=== PATIENT | male | born 1980 | race Caucasian/White ===

== ENCOUNTER 2017-05-23 16:43 | Emergency (ER) | payer MEDICAID ==
[~2017-05-23] VITALS: Ht 177.8 cm; Wt 95.3 kg
[2017-05-23] MEDS ORDERED: HYDROcodone/APAP 10/325 1 TAB TABLET PO ONE (18:15)
--- NOTE | 2017-05-23 18:17 | PHYS DOC ---
Past History Past Medical History: Anxiety, Depression, Diabetes, Other Past Surgical History: No Surgical History Alcohol Use: Occasionally Drug Use: None Adult General Chief Complaint Chief Complaint: WOUND CHECK [facility] HPI Patient is a 36 year old M who presents with a pilonidal cyst that was drained and packed 2 days ago at [facility]. He was advised at that time to follow-up with surgery today however he was unable to get a ride to the surgeons office. He states that his wound is continuing to drain. His pain has been controlled with pain medication. He denies fevers sweats chills or flulike symptoms. He is currently taking his antibiotics. Review of Systems Review of Systems Constitutional: Denies fever or chills [] Eyes: Denies change in visual acuity, redness, or eye pain [] HENT: Denies nasal congestion or sore throat [] Respiratory: Denies cough or shortness of breath [] Cardiovascular: No additional information not addressed in HPI [] GI: Denies abdominal pain, nausea, vomiting, bloody stools or diarrhea [] : Denies dysuria or hematuria [] Musculoskeletal: Denies back pain or joint pain [] Integument: Negative except history of present illness Neurologic: Denies headache, focal weakness or sensory changes [] Endocrine: Denies polyuria or polydipsia [] Family History Family History Noncontributory Current Medications Current Medications Medications reviewed Allergies Allergies Allergies Coded Allergies Type Severity Reaction Last Updated Verified haloperidol Allergy Unknown 05/23/17 Yes paliperidone Allergy Unknown 05/23/17 Yes Physical Exam Physical Exam Constitutional: Well developed, well nourished, no acute distress, non-toxic appearance. [] HENT: Normocephalic, atraumatic, bilateral external ears normal, oropharynx moist, no oral exudates, nose normal. [] Eyes: EOMI, conjunctiva normal, no discharge. [] Neck: Normal range of motion, no tenderness, supple, no stridor. [] Cardiovascular:Heart rate regular rhythm, Lungs & Thorax: Bilateral breath sounds clear to auscultation [] Abdomen: Bowel sounds normal, soft, no tenderness, no masses, no pulsatile masses. [] Skin: Midline pollinosis noted with packing in place and drainage, well granulated edges with no bleeding or signs of surrounding cellulitis Back: No tenderness, no CVA tenderness. [] Extremities: No tenderness, no cyanosis, no clubbing, ROM intact, no edema. [] Neurologic: Alert and oriented X 3, normal motor function, normal sensory function, no focal deficits noted. [] Psychologic: Affect normal, judgement normal, mood normal. [] Current Patient Data Vital Signs Vital Signs Date Time Temp Pulse Resp B/P (MAP) Pulse Ox O2 Delivery O2 Flow Rate FiO2 05/23/17 17:02 98.0 94 16 99 Room Air EKG EKG [] Radiology/Procedures Radiology/Procedures His wound was cleaned and dressing was changed Course & Med Decision Making Course & Med Decision Making Pertinent Labs and Imaging studies reviewed. (See chart for details) [] Dragon Disclaimer Dragon Disclaimer This chart was dictated in whole or in part using Voice Recognition software in a busy, high-work load, and often noisy Emergency Department environment. It may contain unintended and wholly unrecognized errors or omissions. Departure Departure: Impression: Primary Impression: Pilonidal cyst Disposition: HOME, SELF-CARE Condition: STABLE Referrals: PCP,NO (PCP) Patient Instructions: Pilonidal Cyst, Care After Additional Instructions: Davian was seen in the emergency department for wound check. No emergency medical condition was found on history or physical exam. His wound was cleaned and the dressing was changed. He was strongly advised follow-up with surgeon as soon as possible for further management of his symptoms. He is advised to return to the emergency room if he develops new or worsening symptoms in particular fever sweats chills or flulike symptoms. GRETCHEN HOLMAN MD May 23, 2017 18:17
[2017-05-23 18:52] VITALS: BP 111/78
== END 2017-05-23 18:55 | disposition home or self-care (01) ==
LOC: ER 16:43
DX: L05.91 Pilonidal cyst without abscess (principal); E11.9 Type 2 diabetes mellitus without complications; F41.9 Anxiety disorder, unspecified; F32.9 Major depressive disorder, single episode, unspecified; Z88.8 Allergy status to other drugs, medicaments and biological substances
CPT/HCPCS: 99283

== ENCOUNTER 2018-11-23 19:44 | Emergency (ER) | payer MEDICAID ==
[~2018-11-23] VITALS: Ht 177.8 cm; Wt 95.3 kg
--- NOTE | 2018-11-23 20:04 | PHYS DOC ---
Past History Past Medical History: Anxiety, Depression, Diabetes, Other Past Surgical History: No Surgical History Smoking: Cigarettes Alcohol Use: Occasionally Drug Use: Methamphetamine Adult General Chief Complaint Chief Complaint: SUICDAL IDEATION HPI HPI Patient is a 38-year-old male with suicidal and homicidal ideation. He attributes this due to people harassing him. He does not have a plan to hurt himself but he has "multiple ways to do it." He does not have any specific target for his homicidal ideation other than people that keep talking to him. When questioned further that included the emergency Department staff. Patient has been intermittently compliant with his prescribed medicines for this. Reports his last use of crystal meth was yesterday at 4 AM. Denies any recent drinking alcohol. [] Review of Systems Review of Systems Constitutional: Denies fever or chills [] Eyes: Denies change in visual acuity, redness, or eye pain [] HENT: Denies nasal congestion or sore throat [] Respiratory: Denies shortness of breath [] Cardiovascular: No chest pain or palpitations[] GI: Denies abdominal pain, nausea, vomiting, bloody stools or diarrhea [] : Denies dysuria or hematuria [] Musculoskeletal: Denies back pain or joint pain [] Integument: Denies rash or skin lesions [] Neurologic: Denies headache, focal weakness or sensory changes [] Endocrine: Denies polyuria or polydipsia [] All other systems were reviewed and found to be within normal limits, except as documented in this note. Allergies Allergies Allergies Coded Allergies Type Severity Reaction Last Updated Verified haloperidol Allergy Unknown 05/23/17 Yes paliperidone Allergy Unknown 05/23/17 Yes Physical Exam Physical Exam Constitutional: Well developed, well nourished, no acute distress, non-toxic appearance. [] HENT: Normocephalic, atraumatic, bilateral external ears normal, oropharynx moist, no oral exudates, nose normal. [] Eyes: PERRLA, EOMI, conjunctiva normal, no discharge. [] Neck: Normal range of motion, no tenderness, supple, no stridor. [] Cardiovascular:Heart rate regular rhythm, no murmur [] Lungs & Thorax: Bilateral breath sounds clear to auscultation [] Abdomen: Bowel sounds normal, soft, no tenderness, no masses, no pulsatile masses. [] Skin: Warm, dry, no erythema, no rash. [] Back: No tenderness, no CVA tenderness. [] Extremities: No tenderness, no cyanosis, no clubbing, ROM intact, no edema. [] Neurologic: Alert and oriented X 3, normal motor function, normal sensory function, no focal deficits noted. [] Psychologic: Affect angry, mood depressed l. [] EKG EKG [] Radiology/Procedures Radiology/Procedures [] Course & Med Decision Making Course & Med Decision Making Pertinent Labs and Imaging studies reviewed. (See chart for details) ED course: Patient arrived, was placed in bed, and tolerated exam well. He was found to be clear from a medical standpoint for further mental health ev aluation. He was screened by the [facility] and ultimately accepted by Roc[facility]. Patient was able to tolerate a meal while in the emergency department. He was transferred in improved condition. Medical decision making: Patient with suicidal and homicidal ideation. There is no evidence of significant electrolyte abnormality, no headache, no urinary tract, and no evidence of a significant toxidrome.[] Dragon Disclaimer Dragon Disclaimer This electronic medical record was generated, in whole or in part, using a voice recognition dictation system. Departure Departure: Impression: Primary Impression: Suicidal ideation Additional Impression: Homicidal ideation Disposition: 65 XFER TO PSYCH HOSP/UNIT Condition: IMPROVED Referrals: PCP,UNKNOWN (PCP) Problem Qualifiers LEYLA GARZA DO November 23, 2018 20:04
[2018-11-23 20:31] LABS: BASO # 0.1 x10^3/uL (0.0-0.2); BASO % 1 % (0-3); EOS # 0.3 x10^3/uL (0.0-0.7); EOS % 2 % (0-3); HEMATOCRIT 43.5 % (39.0-53.0); HEMOGLOBIN 14.9 g/dL (13.0-17.5); LYMPH # 4.7 x10^3/uL (1.0-4.8); LYMPH % 38 % (24-48); MEAN CORPUSCULAR HEMOGLOBIN 31 pg (25-35); MEAN CORPUSCULAR HGB CONC 34 g/dL (31-37); MEAN CORPUSCULAR VOLUME 90 fL (79-100); MONO # 1.2 x10^3/uL (0.0-1.1); MONO % 10 % (0-9); NEUT # 6.2 x10^3uL (1.8-7.7); NEUT % 50 % (31-73); PLATELET COUNT 283 x10^3/uL (140-400); RED BLOOD COUNT 4.83 x10^6/uL (4.30-5.70); RED CELL DISTRIBUTION WIDTH 13.2 % (11.5-14.5); WHITE BLOOD COUNT 12.4 x10^3/uL (4.0-11.0)
[2018-11-23 20:41] LABS: ACETAMIN < 2 mcg/mL (10-30); SALIC 4.7 mg/dL (2.8-20.0)
[2018-11-23 20:42] LABS: ETHANOL < 10 mg/dL (0-10)
[2018-11-23 20:43] LABS: ALBUMIN 3.6 g/dL (3.4-5.0); ALBUMIN/GLOBULIN RATIO 0.9 (1.0-1.7); CALCIUM 9.7 mg/dL (8.5-10.1); CREATININE 1.2 mg/dL (0.7-1.3); GFR 68.5; TOTAL BILIRUBIN 0.3 mg/dL (0.2-1.0); TOTAL PROTEIN 7.5 g/dL (6.4-8.2)
[2018-11-23 21:16] LABS: BACTERIA,URINE FEW /HPF (0-FEW); BILIRUBIN,URINE NEG (NEG); CLARITY,URINE HAZY; COLOR,URINE AMBER; GLUCOSE,URINE 500 mg/dL (NEG); NITRITE,URINE NEG (NEG); RBC,URINE 0 /HPF (0-2); SQUAMOUS EPITHELIAL CELL,UR OCC /LPF; UROBILINOGEN,URINE 0.2 mg/dL (0.2 mg/dL); WBC,URINE 0 /HPF (0-4)
[2018-11-23 21:21] LABS: AMPHETAMINE/METHAMPHETAMINE POS (NEG); BARBITURATES NEG (NEG); BENZODIAZEPINES NEG (NEG); CANNABINOIDS NEG (NEG); COCAINE NEG (NEG); METHADONE NEG (NEG); OPIATES NEG (NEG); PHENCYCLIDINE NEG (NEG)
[2018-11-23 21:46] LABS: % BASOS 1 % (0-3); % LYMPHS 35 % (24-48); % MONOS 8 % (0-10); % SEGS 56 % (35-66); ANISOCYTOSIS SLIGHT; PLT ESTIMATE ADEQUATE (ADEQUATE)
[2018-11-24 01:13] VITALS: BP 107/59
== END 2018-11-24 02:15 ==
LOC: EEVIPCON 19:44 → ER 19:44
DX: R45.851 Suicidal ideations (principal); R45.850 Homicidal ideations; F41.9 Anxiety disorder, unspecified; F32.9 Major depressive disorder, single episode, unspecified; E11.9 Type 2 diabetes mellitus without complications; F17.210 Nicotine dependence, cigarettes, uncomplicated; Z88.8 Allergy status to other drugs, medicaments and biological substances
CPT/HCPCS: 36415; 80053; 80307; 80329; 81001; 85007; 85025; 99285; G0480; 82003

== ENCOUNTER 2018-12-26 13:13 | Emergency (ER) | payer MEDICAID ==
[~2018-12-26] VITALS: Ht 175.3 cm; Wt 97.5 kg
[2018-12-26 13:20] VITALS: BP 115/81
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
--- NOTE | 2018-12-26 14:00 | RAD ---
EXAM: PA and Lateral Views of the Chest DATE: 12/26/2018 1:32 PM INDICATION: Left-sided rib injury. COMPARISON: No Prior FINDINGS: The heart is not enlarged. Mediastinal and hilar contours are normal. No focal parenchymal airspace opacity. No pleural effusion or pneumothorax. IMPRESSION: 1. No radiographic evidence for acute cardiopulmonary process. Electronically signed by: Irvin Hercules MD (12/26/2018 1:57 PM) [id number]
[2018-12-26] MEDS ORDERED: MELO7.5T29 PO (14:05)
[2018-12-26] MEDS ORDERED: TRAM50TA PO (14:05)
== END 2018-12-26 14:10 | disposition home or self-care (01) ==
LOC: ER 13:13
DX: S22.42XA Multiple fractures of ribs, left side, initial encounter for closed fracture (principal); F17.210 Nicotine dependence, cigarettes, uncomplicated; Z88.8 Allergy status to other drugs, medicaments and biological substances; V27.4XXA Motorcycle driver injured in collision with fixed or stationary object in traffic accident, initial encounter; Y93.I9 Activity, other involving external motion; Y92.488 Other paved roadways as the place of occurrence of the external cause; Y99.8 Other external cause status
CPT/HCPCS: 71046; 99284

== ENCOUNTER 2019-02-24 13:27 | Emergency (ER) | payer MEDICAID ==
[~2019-02-24] VITALS: Ht 175.3 cm; Wt 94.8 kg
[~2019-02-24 13:27] MED LIST: MELO7.5T29 PO; TRAM50TA PO
[2019-02-24 13:40] VITALS: BP 118/64
--- NOTE | 2019-02-24 14:22 | PHYS DOC ---
Past History Past Medical History: Bipolar, Depression, Diabetes, High Cholesterol, Schizophrenia Past Surgical History: No Surgical History Smoking: Cigarettes Alcohol Use: Occasionally Drug Use: Methamphetamine Adult General Chief Complaint Chief Complaint: WITHDRAWL HPI HPI Patient is a 38-year-old male who presents with report that he has 10 year history of methamphetamine abuse. Patient is indicating that he would like to be admitted for detox. He denies any suicidal or homicidal ideations. He does have some blisters to his feet from walking around a lot and is concerned because he is a diabetic. He denies any fever, chest pain or shortness breath.[] Review of Systems Review of Systems Constitutional: Denies fever or chills [] Respiratory: Denies cough or shortness of breath [] Cardiovascular: No additional information not addressed in HPI [] Musculoskeletal: Complains of bilateral foot pain [] Integument: Positive blisters to plantar aspect of both feet[] Allergies Allergies Allergies Coded Allergies Type Severity Reaction Last Updated Verified haloperidol Allergy Unknown 05/23/17 Yes paliperidone Allergy Unknown 05/23/17 Yes Physical Exam Physical Exam Constitutional: Well developed, well nourished, no acute distress, non-toxic appearance. [] Cardiovascular:Heart rate regular rhythm, no murmur [] Lungs & Thorax: Bilateral breath sounds clear to auscultation [] Skin: Plantar aspect of both feet demonstrates blisters that are healing with no signs of infection. [] Extremities: No tenderness, no cyanosis, no clubbing, ROM intact, no edema. [] Current Patient Data Vital Signs Vital Signs Date Time Temp Pulse Resp B/P (MAP) Pulse Ox O2 Delivery O2 Flow Rate FiO2 02/24/19 13:40 97.7 81 20 97 Room Air EKG EKG [] Radiology/Procedures Radiology/Procedures [] Course & Med Decision Making Course & Med Decision Making Pertinent Labs and Imaging studies reviewed. (See chart for details) [] Dragon Disclaimer Dragon Disclaimer This electronic medical record was generated, in whole or in part, using a voice recognition dictation system. Departure Departure: Impression: Primary Impression: Methamphetamine abuse Disposition: 07 AGAINST MEDICAL ADVICE Condition: STABLE Referrals: PCP,NO (PCP) KEARA EMANUEL Jr. DO Feb 24, 2019 14:22
== END 2019-02-24 13:57 | disposition left against medical advice (07) ==
LOC: ER 13:27
DX: F15.10 Other stimulant abuse, uncomplicated (principal); M79.672 Pain in left foot; M79.671 Pain in right foot; E11.9 Type 2 diabetes mellitus without complications; E78.00 Pure hypercholesterolemia, unspecified; F20.9 Schizophrenia, unspecified; F17.210 Nicotine dependence, cigarettes, uncomplicated; Z88.8 Allergy status to other drugs, medicaments and biological substances
CPT/HCPCS: 99281; 99283

== ENCOUNTER 2019-06-06 17:12 | Emergency (ER) | payer SELFPAY ==
--- NOTE | 2019-06-06 18:09 | PHYS DOC ---
Past History Past Medical History: Bipolar, Depression, Diabetes, High Cholesterol, Schizophrenia Past Surgical History: No Surgical History Smoking: Cigarettes Alcohol Use: Occasionally Drug Use: Methamphetamine Adult General Chief Complaint Chief Complaint: PSYCH EVALUATION HPI HPI Patient is a [age] year old [sex] who presents with [] Review of Systems Review of Systems Constitutional: Denies fever or chills [] Eyes: Denies change in visual acuity, redness, or eye pain [] HENT: Denies nasal congestion or sore throat [] Respiratory: Denies cough or shortness of breath [] Cardiovascular: No additional information not addressed in HPI [] GI: Denies abdominal pain, nausea, vomiting, bloody stools or diarrhea [] : Denies dysuria or hematuria [] Musculoskeletal: Denies back pain or joint pain [] Integument: Denies rash or skin lesions [] Neurologic: Denies headache, focal weakness or sensory changes [] Endocrine: Denies polyuria or polydipsia [] All other systems were reviewed and found to be within normal limits, except as documented in this note. Allergies Allergies Allergies Coded Allergies Type Severity Reaction Last Updated Verified haloperidol Allergy Unknown 05/23/17 Yes paliperidone Allergy Unknown 05/23/17 Yes Physical Exam Physical Exam Constitutional: Well developed, well nourished, no acute distress, non-toxic appearance. [] HENT: Normocephalic, atraumatic, bilateral external ears normal, oropharynx moist, no oral exudates, nose normal. [] Eyes: PERRLA, EOMI, conjunctiva normal, no discharge. [] Neck: Normal range of motion, no tenderness, supple, no stridor. [] Cardiovascular:Heart rate regular rhythm, no murmur [] Lungs & Thorax: Bilateral breath sounds clear to auscultation [] Abdomen: Bowel sounds normal, soft, no tenderness, no masses, no pulsatile masses. [] Skin: Warm, dry, no erythema, no rash. [] Back: No tenderness, no CVA tenderness. [] Extremities: No tenderness, no cyanosis, no clubbing, ROM intact, no edema. [] Neurologic: Alert and oriented X 3, normal motor function, normal sensory function, no focal deficits noted. [] Psychologic: Affect normal, judgement normal, mood normal. [] EKG EKG [] Radiology/Procedures Radiology/Procedures [] Course & Med Decision Making Course & Med Decision Making Pertinent Labs and Imaging studies reviewed. (See chart for details) [] Dragon Disclaimer Dragon Disclaimer This electronic medical record was generated, in whole or in part, using a voice recognition dictation system. Departure Departure: Impression: Primary Impression: Methamphetamine abuse Additional Impressions: Left against medical advice Suicidal ideation Hallucinations Disposition: 07 AGAINST MEDICAL ADVICE Condition: GUARDED Referrals: PCP,NO (PCP) Patient Instructions: Discharge Against Medical Advice, Hallucinations and Delusions, Methamphetamine Abuse, Complications, Suicidal Feelings, How to Help Yourself Additional Instructions: Please follow closely at the [facility] for further evaluation and treatment. Return for any concerns. Problem Qualifiers NAVEEN GRIER DO Jun 06, 2019 18:09
== END 2019-06-06 18:06 | disposition left against medical advice (07) ==
LOC: ER 17:12
DX: F15.10 Other stimulant abuse, uncomplicated (principal); R45.851 Suicidal ideations; R44.3 Hallucinations, unspecified; F31.9 Bipolar disorder, unspecified; E11.9 Type 2 diabetes mellitus without complications; E78.00 Pure hypercholesterolemia, unspecified; F20.9 Schizophrenia, unspecified; F17.210 Nicotine dependence, cigarettes, uncomplicated; Z88.8 Allergy status to other drugs, medicaments and biological substances
CPT/HCPCS: 99281

== ENCOUNTER 2019-06-18 23:32 | Inpatient (IN) | payer SELFPAY ==
[~2019-06-18] VITALS: Ht 177.8 cm; Wt 95.8 kg
--- NOTE | 2019-06-19 00:09 | PHYS DOC ---
Past History Past Medical History: Bipolar, Depression, Diabetes, High Cholesterol, Schizophrenia Past Surgical History: No Surgical History Smoking: Cigarettes Alcohol Use: Occasionally Drug Use: Methamphetamine Adult General Chief Complaint Chief Complaint: BLOOD SUGAR PROBLEM HPI HPI 38 year old male presents with elevated blood sugar. He was dropped off by his father who said his blood sugar machine was not working at home and he was afraid the patient had blood sugar. The patient on metformin and Levemir. He is not really answering my questions. On been taking his medicines or not. When I ask him if he has any pain, he does not answer. When asked if he is taking his medicines he moaned, but didn't really answer definitively one where the other. He is easily arousable, just appears to be uncooperative. Review of Systems Review of Systems Limited due to patient noncooperation. Constitutional: Denies fever or chills [] Eyes: [] HENT: Denies sore throat [] Respiratory: Denies shortness of breath [] Cardiovascular: No additional information not addressed in HPI [] GI: Denies abdominal pain.[] : [] Musculoskeletal: Denies pain [] Integument: [] Neurologic: [] Endocrine: [] Current Medications Current Medications Current Medications Medications (Trade) Dose Ordered Sig/Xavi Start Time Stop Time Status Last Admin Dose Admin Sodium Chloride 1,000 ml @ 1,000 mls/hr 1X ONCE 06/19/19 00:00 06/19/19 00:59 UNV Allergies Allergies Allergies Coded Allergies Type Severity Reaction Last Updated Verified haloperidol Allergy Unknown 05/23/17 Yes paliperidone Allergy Unknown 05/23/17 Yes Physical Exam Physical Exam Constitutional: Well developed, well nourished, no acute distress, sleepy, non- toxic appearance. [] HENT: Normocephalic, atraumatic, bilateral external ears normal, oropharynx moist, no oral exudates, nose normal. [] Eyes: PERRLA, EOMI, conjunctiva normal, no discharge. [] Neck: Normal range of motion, no tenderness, supple, no stridor. [] Cardiovascular:Heart rate 121, regular rhythm, no murmur [] Lungs & Thorax: Bilateral breath sounds clear to auscultation [] Abdomen: Bowel sounds normal, soft, no tenderness, no masses, no pulsatile masses. [] Skin: Warm, dry, no erythema, no rash. [] Back: No tenderness, no CVA tenderness. [] Extremities: No tenderness, no cyanosis, no clubbing, ROM intact, no edema. [] Neurologic: Unable to fully evaluate. [] Psychologic: Uncooperative. [] EKG EKG [] Radiology/Procedures Radiology/Procedures [] Course & Med Decision Making Course & Med Decision Making Pertinent Labs and Imaging studies reviewed. (See chart for details) The patient has a blood sugar of 389. We have given him 2 L normal saline and 10 units of regular insulin IV. The patient is also positive for methamphetamines. I suspect this has a lot to do with his uncooperative nature. I will admit him for hyperglycemia and drug intoxication. I spoke with Dr. Dale and he has accepted the patient for admission. [] Dragon Disclaimer Dragon Disclaimer This electronic medical record was generated, in whole or in part, using a voice recognition dictation system. Departure Departure: Impression: Primary Impression: Methamphetamine abuse Additional Impression: Hyperglycemia Disposition: ADMITTED INPATIENT Admitting Physician: Jammie Dale Condition: STABLE Referrals: PCP,NO (PCP) Problem Qualifiers LE OLIVA DO Jun 19, 2019 00:09
[2019-06-19] MEDS ORDERED: IV NORMAL SALINE 1,000ML 1,000 ML IV ONE ×2 (00:15→01:00)
[2019-06-19] MEDS ORDERED: INSULIN REGULAR 100 UNIT/ML 3ML VIAL. IV ONE (00:45)
[2019-06-19 00:59] LABS: BASO # 0.1 x10^3/uL (0.0-0.2); BASO % 1 % (0-3); EOS # 0.2 x10^3/uL (0.0-0.7); EOS % 1 % (0-3); HEMATOCRIT 44.7 % (39.0-53.0); LYMPH # 3.4 x10^3/uL (1.0-4.8); LYMPH % 27 % (24-48); MEAN CORPUSCULAR HEMOGLOBIN 31 pg (25-35); MEAN CORPUSCULAR HGB CONC 34 g/dL (31-37); MEAN CORPUSCULAR VOLUME 93 fL (79-100); MONO # 1.1 x10^3/uL (0.0-1.1); MONO % 9 % (0-9); NEUT # 7.9 x10^3uL (1.8-7.7); NEUT % 62 % (31-73); PLATELET COUNT 261 x10^3/uL (140-400); RED BLOOD COUNT 4.82 x10^6/uL (4.30-5.70); RED CELL DISTRIBUTION WIDTH 13.9 % (11.5-14.5); WHITE BLOOD COUNT 12.8 x10^3/uL (4.0-11.0)
[2019-06-19 01:05] LABS: BACTERIA,URINE 0 /HPF (0-FEW); BILIRUBIN,URINE NEG (NEG); CLARITY,URINE CLEAR; COLOR,URINE YELLOW; GLUCOSE,URINE >=1000 mg/dL (NEG); NITRITE,URINE NEG (NEG); RBC,URINE 0 /HPF (0-2); SQUAMOUS EPITHELIAL CELL,UR OCC /LPF; UROBILINOGEN,URINE 0.2 mg/dL (0.2 mg/dL); WBC,URINE OCC /HPF (0-4)
[2019-06-19 01:08] LABS: BARBITURATES NEG (NEG); BENZODIAZEPINES NEG (NEG); CANNABINOIDS NEG (NEG); COCAINE NEG (NEG); METHADONE NEG (NEG); OPIATES NEG (NEG); PHENCYCLIDINE NEG (NEG)
[2019-06-19 01:09] LABS: AMPHETAMINE/METHAMPHETAMINE POS (NEG)
[2019-06-19 01:11] LABS: ALBUMIN 3.7 g/dL (3.4-5.0); CALCIUM 8.7 mg/dL (8.5-10.1); CREATININE 1.2 mg/dL (0.7-1.3); GFR 68.5; TOTAL BILIRUBIN 0.4 mg/dL (0.2-1.0); TOTAL PROTEIN 7.3 g/dL (6.4-8.2)
[2019-06-19 01:17] LABS: POTASSIUM 4.1 mmol/L (3.5-5.1)
[2019-06-19] MEDS ORDERED: INSULIN LISPRO 300 UNITS/3 ML VIAL. SQ PRN (02:30)
[2019-06-19 02:44] VITALS: BP 120/66
[2019-06-19] MEDS ORDERED: INSU100I27 SQ (03:31)
[2019-06-19] MEDS ORDERED: METF500T16 PO (03:31)
[2019-06-19 06:13] VITALS: BP 98/60
[2019-06-19 10:39] VITALS: BP 109/64
[2019-06-19] MEDS ORDERED: METF500T11 PO (14:34)
[2019-06-19] MEDS ORDERED: HUM100VI SQ (14:34)
[2019-06-19] MEDS ORDERED: GLIM1TAB PO (14:34)
--- NOTE | 2019-06-19 15:06 | SSS ---
ADMIT DATE: 06/19/2019 HISTORY OF PRESENT ILLNESS: The patient is a 38-year-old male patient who was brought to the Emergency Room by his father on account of markedly elevated blood sugar, as his blood sugar machine was not working at home. He was afraid that the patient had extremely high blood sugar. The patient is on metformin and Levemir. He is not really answering question. He apparently was extensively investigated in the Emergency Room, was found to be positive for amphetamine and methamphetamine, negative for all other drugs. His blood sugar was extremely high at 393. His white cell count was slightly elevated. Urinalysis was essentially unremarkable. He was admitted and started on IV fluid and also started on insulin and given 2 liters of normal saline, did very well. His blood sugar has been much better improved between 150-200. He is more awake, alert, interactive, and moves all extremities and ambulates without assistance or assistive devices. He apparently was on [place] Medicaid that he moved to live with his father here and he is now without any insurance, and therefore, I have discussed multiple options for his medication. I gave him prescription for metformin, Amaryl, and Humulin 70/30 insulin instead of his Levemir insulin that he used to get for relatively low mcmahon at [facility]. PAST MEDICAL HISTORY: Significant for type 2 diabetes, hyperlipidemia. He is known to have bipolar disorder, depression, and schizophrenia. He gets an injection of Abilify. PAST SURGICAL HISTORY: Unremarkable. ALLERGIES: He is allergic to HALOPERIDOL and PALIPERIDONE. MEDICATIONS: He is currently on metformin 500 mg twice a day with meals. He is also on Levemir insulin at bedtime, although he ran out of all his medication. FAMILY HISTORY: Noncontributory. SOCIAL HISTORY: He is single, has continued to smoke and inject amphetamine. PHYSICAL EXAMINATION: GENERAL: When I examined him, he looked well and was clearly in no apparent respiratory distress. No pallor, jaundice, cyanosis, or thyromegaly. No jugular venous distention or limb edema. VITAL SIGNS: Heart rate was 107. His heart rate actually when I saw him this afternoon was 91, blood pressure 109/64, temperature was 98.1, respiratory rate was 18, and oxygen saturation was 96%. HEAD, EYES, EARS, NOSE, AND THROAT: Normocephalic, atraumatic. NECK: Supple. HEART: Showed normal first and second heart sounds. No gallop or murmur. CHEST: Clear to auscultation. No crepitation or rhonchi. ABDOMEN: Distended, soft, nontender. No guarding or rigidity. No organomegaly. All hernial orifice intact. Bowel sounds normal. NEUROLOGIC: He is awake, alert, responding appropriately. All cranial nerves intact. EXTREMITIES: He moves extremities without difficulty, ambulates without assistance, or assistive devices. LABORATORY DATA: His blood sugar has been very well controlled throughout the day. His white cell count was slightly elevated at 12,800, hemoglobin 15, hematocrit 44, MCV 93, and platelet count 261,000. His chemistry earlier his morning showed a serum sodium 139, potassium 4.1, chloride 100, bicarbonate 27, anion gap of 12, BUN 13, creatinine 1.2, estimated GFR was 68 mL per minute. His glucose was 199, calcium was 8.7. Total bilirubin, AST, ALT, alkaline phosphatase were normal. Total protein was 7.3, albumin was 3.7. Urinalysis showed large amount of glucose, negative for ketones, blood, nitrite, leukocyte esterase. No rbc's and wbc's. ASSESSMENT AND PLAN: The patient was discharged home to continue on glimepiride 2 mg twice a day, Humulin 70/30, 20 units in the morning and 10 units in the evening, metformin 1000 mg twice a day. The patient is also currently on Abilify that he gets injection of that once a month, is not available here today. The patient was counseled about the amphetamine abuse and given alternatives cheaper treatment for his diabetes including metformin, Amaryl, and Humulin 70/30. He was also advised to follow with the [facility] to get his injection for his psychotropic medication. WALTER GUZMAN MD DR: CHARLI/abdi JOB#: [id number] / [id number]
[2019-06-19 15:37] VITALS: BP 105/64
== END 2019-06-19 16:24 | disposition home or self-care (01) | DRG 639 ==
LOC: ER 23:32 → 1 SOUTH 06-19 01:30
PROVIDERS: ADMIT Internal Medicine; ATTEND Internal Medicine
DX: E11.65 Type 2 diabetes mellitus with hyperglycemia (principal); E78.5 Hyperlipidemia, unspecified; F31.9 Bipolar disorder, unspecified; F20.9 Schizophrenia, unspecified; E78.00 Pure hypercholesterolemia, unspecified; F17.210 Nicotine dependence, cigarettes, uncomplicated; F15.10 Other stimulant abuse, uncomplicated; Z79.4 Long term (current) use of insulin; Z71.51 Drug abuse counseling and surveillance of drug abuser; Z88.8 Allergy status to other drugs, medicaments and biological substances
CPT/HCPCS: 36415; 80053; 80307; 81001; 82947; 85025; 96361; 96374; J1815; 99285-25; J7030

== ENCOUNTER 2019-07-28 17:28 | Emergency (ER) | payer MEDICAID ==
[~2019-07-28] VITALS: Ht 177.8 cm; Wt 96.2 kg
[~2019-07-28 17:28] MED LIST changes: +GLIM1TAB PO; +HUM100VI SQ; +INSU100I27 SQ; +METF500T11 PO; +METF500T16 PO
--- NOTE | 2019-07-28 17:58 | PHYS DOC ---
Past History Past Medical History: Bipolar, Depression, Diabetes, High Cholesterol, Schizophrenia Past Surgical History: No Surgical History Smoking: Cigarettes Alcohol Use: Occasionally Drug Use: Methamphetamine Adult General Chief Complaint Chief Complaint: WOUND CHECK...".. I ve got some abscess or cellulitis.. I tried draining them my self.. but they are worse.. I ve had the one on my butt crack before. .. I was drained about 2 yrs.. at hospital [place]... " [facility] HPI Patient is a 38 year old male who presents with above hx and request for wound check. Patient has to 2 x 3 cm abscesses on his groin area 1 on left anterior groin area and one at the top of the gluteal crease. The gluteal crease abscess occurred approximately 2 years ago required drainage. Patient does have diabetes and has not been taking his diabetic meds. Patient not sure of his last tetanus shot. No recent travel. No history immunosuppression. Patient does smoke. No significant ill contacts. Review of Systems Review of Systems Constitutional: Subjective complaints of fever Eyes: Denies change in visual acuity, redness, or eye pain [] HENT: Denies nasal congestion or sore throat [] Respiratory: Denies cough or shortness of breath [] Cardiovascular: No additional information not addressed in HPI [] GI: Denies abdominal pain, nausea, vomiting, bloody stools or diarrhea [] : Denies dysuria or hematuria [] Musculoskeletal: Denies back pain or joint pain [] Integument: Complains of cellulitis and abscess in groin area Neurologic: Denies headache, focal weakness or sensory changes [] Endocrine: Denies polyuria or polydipsia [] All other systems were reviewed and found to be within normal limits, except as documented in this note. Family History Family History Diabetes Current Medications Current Medications See nursing for home meds Allergies Allergies Allergies Coded Allergies Type Severity Reaction Last Updated Verified haloperidol Allergy Unknown 05/23/17 Yes paliperidone Allergy Unknown 05/23/17 Yes Physical Exam Physical Exam Constitutional: In moderate acute distress, non-toxic appearance. [] HENT: Normocephalic, atraumatic, bilateral external ears normal, oropharynx moist, no oral exudates, nose normal. [] Eyes: PERRLA, EOMI, conjunctiva normal, no discharge. [] Neck: Normal range of motion, no tenderness, supple, no stridor. [] Cardiovascular:Heart rate regular rhythm, no murmur [] Lungs & Thorax: Bilateral breath sounds equal at apexes auscultation [] Abdomen: Bowel sounds normal, soft, no tenderness, no masses, no pulsatile masses. [] Skin: Warm, dry, no erythema, no rash. [] Except finding of two abscess and cellulitis in groin area as per HPI. Back: No tenderness, no CVA tenderness. [] Extremities: No tenderness, no cyanosis, no clubbing, ROM intact, no edema. [] Neurologic: Alert and oriented X 3, normal motor function, normal sensory function, no focal deficits noted. [] Psychologic: Affect anxious, judgement normal, mood normal. [] EKG EKG [] Radiology/Procedures Radiology/Procedures [] Course & Med Decision Making Course & Med Decision Making Pertinent Labs and Imaging studies reviewed. (See chart for details) Procedure Note- Incision and Drainage - area of abscess cleaned with Betadine use 2 separate 11 blades one stick each abscess with return of malodorous green pus +/- 3 cc . Abscesses probed with Q-tip and sent for culture. Gluteal crease abscess required some packing- 6 cm. Patient to do sitz baths or warm to hot showers 4 times a day and after stooling. Packing in gluteal crease abscess to be removed in 3 days. Patient take Tylenol and ibuprofen for pain. Patient follow-up pending cultures. Patient take Bactrim DS twice a day and Flagyl 500 mg 3 times a day. Patient advised that posterior gluteal crease abscess may need further surgical exploration. Patient follow-up primary care. Patient return if any concerns. Patient encouraged to get back on his diabetic meds. Patient encouraged to not smoke. Impression- 1. Cellulitis and abscess in groin x 2 2. Diabetes glucose 394 3. Leukocytosis 12.5 [] Dragon Disclaimer Dragon Disclaimer This electronic medical record was generated, in whole or in part, using a voice recognition dictation system. Departure Departure: Disposition: 01 HOME/RESIDENCE PRIOR TO ADM Condition: STABLE Referrals: PCP,NO (PCP) Scripts Metronidazole (FLAGYL) 500 Mg Tablet 500 MG PO TID for abscess for 10 Days, #30 TAB Prov: HAMILTON KUHN MD 07/28/19 Sulfamethoxazole/Trimethoprim (BACTRIM DS TABLET) 1 Each Tablet 1 TAB PO BID for abscess for 10 Days, #20 TAB 0 Refills Prov: HAMILTON KUHN MD 07/28/19 Dragon Disclaimer This chart was dictated in whole or in part using Voice Recognition software in a busy, high-work load, and often noisy Emergency Department environment. It may contain unintended and wholly unrecognized errors or omissions. Dragon Disclaimer This chart was dictated in whole or in part using Voice Recognition software in a busy, high-work load, and often noisy Emergency Department environment. It may contain unintended and wholly unrecognized errors or omissions. HAMILTON KUHN MD Jul 28, 2019 17:58
[2019-07-28] MEDS ORDERED: SULF1TAB24 PO (20:00)
[2019-07-28] MEDS ORDERED: METR500T PO (20:00)
[2019-07-28] MEDS ORDERED: IV RINGERS SOLUTION,LACTATED 1,000 ML IV SCH (20:00)
[2019-07-28] MEDS ORDERED: DIPHTH,PERTUSS(ACELL),TET TOX 0.5 ML DISP.SYRIN. VAX IM ONE (20:00)
[2019-07-28] MEDS ORDERED: IV NORMAL SALINE 50ML 50 ML ONE (20:05)
[2019-07-28] MEDS ORDERED: cefTRIAXone SODIUM 1 GM VIAL ONE (20:05)
[2019-07-28] MEDS ORDERED: metroNIDAZOLE 500 MG TABLET PO ONE (20:15)
[2019-07-28] MEDS ORDERED: MORPHINE SULFATE 10 MG/ML SYRINGE. SQ ONE (20:15)
[2019-07-28] MEDS ORDERED: KETOROLAC 60 MG/2 ML VIAL. IM ONE (20:15)
[2019-07-28] MEDS ORDERED: ONDANSETRON PF 4 MG/2 ML VIAL. IVP ONE (20:15)
[2019-07-28] MEDS ORDERED: SMZ/TMP 800/160MG TABLET. PO ONE (20:15)
[2019-07-28 20:40] LABS: BASO # 0.1 x10^3/uL (0.0-0.2); BASO % 1 % (0-3); EOS # 0.3 x10^3/uL (0.0-0.7); EOS % 2 % (0-3); HEMATOCRIT 45.3 % (39.0-53.0); HEMOGLOBIN 15.4 g/dL (13.0-17.5); LYMPH # 3.2 x10^3/uL (1.0-4.8); LYMPH % 25 % (24-48); MEAN CORPUSCULAR HEMOGLOBIN 30 pg (25-35); MEAN CORPUSCULAR HGB CONC 34 g/dL (31-37); MEAN CORPUSCULAR VOLUME 89 fL (79-100); MONO # 1.4 x10^3/uL (0.0-1.1); MONO % 11 % (0-9); NEUT # 7.6 x10^3uL (1.8-7.7); NEUT % 61 % (31-73); PLATELET COUNT 228 x10^3/uL (140-400); RED BLOOD COUNT 5.09 x10^6/uL (4.30-5.70); RED CELL DISTRIBUTION WIDTH 12.6 % (11.5-14.5); WHITE BLOOD COUNT 12.5 x10^3/uL (4.0-11.0)
[2019-07-28 20:43] LABS: CALCIUM 9.2 mg/dL (8.5-10.1); CREATININE 1.2 mg/dL (0.7-1.3); GFR 68.5
[2019-07-28] MEDS ORDERED: INSULIN REGULAR 100 UNIT/ML 3ML VIAL. IV ONE (21:30)
[2019-07-28 21:52] VITALS: BP 130/65
== END 2019-07-28 21:58 | disposition home or self-care (01) ==
LOC: ER 17:28
DX: L03.314 Cellulitis of groin (principal); L02.214 Cutaneous abscess of groin; E11.9 Type 2 diabetes mellitus without complications; D72.829 Elevated white blood cell count, unspecified; F31.9 Bipolar disorder, unspecified; E78.00 Pure hypercholesterolemia, unspecified; F20.9 Schizophrenia, unspecified; F17.210 Nicotine dependence, cigarettes, uncomplicated; Z88.8 Allergy status to other drugs, medicaments and biological substances
CPT/HCPCS: 10061; 36415; 80048; 82947; 85025; 87040; 87071; 87075; 90471; 90715; 96365; 96372; 96375; 99284; J0696; J1815; J1885; J2270; J2405; J7120

== ENCOUNTER 2020-08-27 17:19 | Emergency (ER) | payer MEDICAID ==
[~2020-08-27] VITALS: Ht 175.3 cm; Wt 98.0 kg
[~2020-08-27 17:19] MED LIST changes: +METF-658 PO; -METF500T11 PO; +METR500T PO; +SULF1TAB24 PO
== END 2020-08-27 19:23 | disposition left against medical advice (07) ==
LOC: ER 17:19
DX: F29 Unspecified psychosis not due to a substance or known physiological condition (principal); Z53.21 Procedure and treatment not carried out due to patient leaving prior to being seen by health care provider

== ENCOUNTER 2020-10-09 | Emergency (ER) | payer MEDICAID ==
[~2020-10-09] VITALS: Ht 175.3 cm; Wt 98.0 kg
--- NOTE | 2020-10-09 00:04 | PHYS DOC ---
Past History Past Medical History: Anxiety, Bipolar, Depression Past Surgical History: Other Additional Past Surgical Histo: hernia Smoking: Cigarettes Alcohol Use: Occasionally Drug Use: Methamphetamine General Adult EDM: Chief Complaint: DENTAL PROBLEM HPI: HPI: Patient is a 40 year old male who presents with above hx and complaints of dental pain. Patient has multiple areas of dental decay. Area primary concern is tooth #31 which is become decayed and now fractured.. Patient does have some lower mandible swelling and facial cellulitis with adenopathy.. Patient denies any immunosuppression. Patient rates his pain 10 out of 10 where the tooth #31 is become fractured. No recent travel. No severe ill contacts. Does smoke. Has past medical history of bipolar disorder, depression, diabetes, elevated cholesterol, MRSA, schizophrenia, tobacco use, methamphetamine. Review of Systems: Review of Systems: Constitutional: Denies fever or chills Eyes: Denies change in visual acuity HENT: Complains of severe dental pain multiple caries-fractured tooth 31, facial swelling Respiratory: Denies cough or shortness of breath Cardiovascular: Denies chest pain or edema GI: Denies abdominal pain, nausea, vomiting, bloody stools or diarrhea : Denies dysuria Musculoskeletal: Denies back pain or joint pain Integument: Denies rash Neurologic: Denies headache, focal weakness or sensory changes Endocrine: Denies polyuria or polydipsia Lymphatic: Denies swollen glands Psychiatric: Denies depression or anxiety Family History: Family History: Noncontributory to presentation Current Medications: Current Meds: See nursing for home meds Allergies: Allergies: Allergies Coded Allergies Type Severity Reaction Last Updated Verified haloperidol Allergy Intermediate 07/28/19 Yes paliperidone Allergy Intermediate 07/28/19 Yes Physical Exam: PE: Constitutional: in acute distress, non-toxic appearance. [] HENT: Normocephalic, atraumatic, bilateral external ears normal, oropharynx moist, no oral exudates, nose normal. Facial swelling on the right. Adenopathy angle jaw. Multiple dental caries. No trismus. Fractured tooth 21 Eyes: PERRLA, EOMI, conjunctiva normal, no discharge. [] Neck: Normal range of motion, no tenderness, supple, no stridor. [] Cardiovascular:Heart rate regular rhythm, no murmur [] Lungs & Thorax: Bilateral breath sounds equal apex with scattered wheezing on auscultation [] Abdomen: Bowel sounds normal, soft, no tenderness, no masses, no pulsatile masses. [] Skin: Warm, dry, no erythema, no rash. [] Back: No tenderness, no CVA tenderness. [] Extremities: No tenderness, no cyanosis, no clubbing, ROM intact, no edema. [] Neurologic: Alert and oriented X 3, normal motor function, normal sensory function, no focal deficits noted. [] Psychologic: Affect anxious, judgement normal, mood normal. [] EKG: EKG: [] Radiology/Procedures: Radiology/Procedures: [] Heart Score: C/O Chest Pain: N/A Risk Factors: Risk Factors: DM, Current or recent (<one month) smoker, HTN, HLP, family history of CAD, obesity. Risk Scores: Score 0 - 3: 2.5% MACE over next 6 weeks - Discharge Home Score 4 - 6: 20.3% MACE over next 6 weeks - Admit for Clinical Observation Score 7 - 10: 72.7% MACE over next 6 weeks - Early Invasive Strategies Course & Med Decision Making: Course & Med Decision Making Pertinent Labs and Imaging studies reviewed. (See chart for details) Nothing we do in the emergency room tonight will fix your underlying dental pain. Must see a dentist. Take Keflex 500 mg 3 times a day. Take Tylenol and ibuprofen for pain. Follow-up primary care. Rinse mouth with Listerine 4 times a day. Follow-up primary care. Encouraged to stop smoking. Covered fractured tooth with history Listerine gum may help control some the pain. Impressions: 1. Dental pain-fractured tooth 31 and facial cellulitis [] Kym Disclaimer: Kym Disclaimer: This electronic medical record was generated, in whole or in part, using a voice recognition dictation system. Departure Departure: Referrals: ANTONY RODRIGUEZ MD (PCP) Scripts Cephalexin (KEFLEX) 750 Mg Capsule 500 MG PO TID for dental infection for 10 Days, #20 CAP Prov: HAMILTON KUHN MD 10/09/20 Kym Disclaimer This chart was dictated in whole or in part using Voice Recognition software in a busy, high-work load, and often noisy Emergency Department environment. It may contain unintended and wholly unrecognized errors or omissions. HAMILTON KUHN MD Oct 09, 2020 00:04
[2020-10-09] MEDS ORDERED: CEPH750C9 PO (00:29)
[2020-10-09] MEDS: cefTRIAXone IM 1 GM VIAL IM ONE (00:43)
[2020-10-09] MEDS: KETOROLAC 60 MG/2 ML VIAL. IM ONE (00:43)
[2020-10-09 01:01] VITALS: BP 132/84
== END 2020-10-09 00:55 | disposition home or self-care (01) ==
LOC: ER
DX: K08.89 Other specified disorders of teeth and supporting structures (principal); L03.211 Cellulitis of face; F31.9 Bipolar disorder, unspecified; F17.210 Nicotine dependence, cigarettes, uncomplicated
CPT/HCPCS: 96372; 99284; J0696; J1885

== ENCOUNTER 2020-10-20 21:43 | Emergency (ER) | payer MEDICAID ==
[~2020-10-20] VITALS: Ht 175.3 cm; Wt 97.7 kg
[~2020-10-20 21:43] MED LIST changes: +CEPH750C9 PO
[2020-10-20] MEDS ORDERED: AMOXICILLIN 250 MG CAPSULE PO ONE (22:30)
[2020-10-20] MEDS ORDERED: ACETAMINOPHEN 500 MG TABLET PO ONE (22:30)
[2020-10-20] MEDS ORDERED: CLINDAMYCIN HCL 150 MG CAPSULE PO ONE (22:30)
[2020-10-20] MEDS ORDERED: BENZOCAINE ONE 20% MUCOSAL SPRAY. MM (22:30)
[2020-10-20] MEDS ORDERED: IBUPROFEN 600 MG TABLET. PO ONE (22:30)
--- NOTE | 2020-10-20 22:35 | PHYS DOC ---
Past History Past Medical History: Anxiety, Bipolar, Depression Past Surgical History: Other Additional Past Surgical Histo: hernia Smoking: Cigarettes Alcohol Use: Occasionally Drug Use: Methamphetamine Adult General Chief Complaint Chief Complaint: DENTAL PROBLEM HPI HPI Patient is a 40-year-old male who presents with a chief complaint of right lower molar pain, 5 out of 10, dull and aching nature with associated swelling just under the right jaw for approximately 10 days. States he was in the emergency department 10 days ago and was started on Keflex which did not help. States he saw his primary care physician and was called in some antibiotics but he has not picked them up yet. Denies any fevers, changes in vision, pain or trouble swallowing, neck pain, chest pain, shortness of breath, nausea, vomiting. Denies any recent travel or ill contacts that he is aware of. States he broke that tooth off approximately 4 months ago. Review of Systems Review of Systems Review of systems otherwise unremarkable except noted in HPI Allergies Allergies Allergies Coded Allergies Type Severity Reaction Last Updated Verified haloperidol Allergy Intermediate 07/28/19 Yes paliperidone Allergy Intermediate 07/28/19 Yes Physical Exam Physical Exam Constitutional: Well developed, well nourished, no acute distress, non-toxic appearance. [] HENT: Normocephalic, atraumatic, bilateral external ears normal, oropharynx moist, no oral exudates, nose normal. [] Eyes: conjunctiva normal, no discharge. [] Neck: Normal range of motion, no tenderness, supple, no stridor, right-sided lymphadenopathy, right submandibular swelling with induration but no fluctuance noted [] Cardiovascular:Heart rate regular rhythm, no murmur [] Lungs & Thorax: Bilateral breath sounds clear to auscultation [] Abdomen: Bowel sounds normal, soft, no tenderness, no masses, no pulsatile masses. [] Skin: Warm, dry, no erythema, no rash. [] Extremities: No tenderness, no cyanosis, no clubbing, ROM intact, no edema. [] Neurologic: Alert and oriented X 3, normal motor function, normal sensory function, no focal deficits noted. [] Psychologic: Affect normal, judgement normal, mood normal. [] EKG EKG [] Radiology/Procedures Radiology/Procedures [] Heart Score C/O Chest Pain: No Risk Factors: Risk Factors: DM, Current or recent (<one month) smoker, HTN, HLP, family h istory of CAD, obesity. Risk Scores: Risk Factors: DM, Current or recent (<one month) smoker, HTN, HLP, family history of CAD, obesity. Course & Med Decision Making Course & Med Decision Making Patient is a 40-year-old male presents with tooth pain and neck swelling for about 10 days [] Vital signs not concerning. Physical exam noted above. Patient given Tylenol, ibuprofen and started on clindamycin in the ED. Patient stated that he did not want to wait in the emergency department for his CAT scan for further evaluation and treatment. Discussed the risks of this with patient including significant illness, disability and worse case scenario if not treated appropriately. Patient stated that he would just call his dentist and/or primary care physician first thing in the morning and make a follow-up appointment as well as get the antibiotics prescribed by his primary care physician and wanted to go home. Dragon Disclaimer Dragon Disclaimer This electronic medical record was generated, in whole or in part, using a voice recognition dictation system. Departure Departure: Disposition: AMA/ELOPED/LWBS Condition: STABLE Referrals: ANTONY RODRIGUEZ MD (PCP) Patient Instructions: Abscess, Dental Pain, [id number] Additional Instructions: Please read all of the attached information carefully. Please take all your antibiotics as prescribed. As discussed, the best course of action would have been to get the CT scan to evaluate your condition and come up with a proper treatment plan. The risks of leaving were discussed with you. Please call your primary care physician or your dentist first thing in the morning to discuss ED visit and set up a follow-up as soon as possible as discussed. Please come back to the ED with new or concerning symptoms as discussed. Scripts Clindamycin Hcl (CLINDAMYCIN HCL) 150 Mg Capsule 1 CAP PO QID for dental infection for 10 Days, #40 CAP Prov: NÉSTOR BURGOS MD 10/20/20 NÉSTOR BURGOS MD Oct 20, 2020 22:35
[2020-10-20] MEDS ORDERED: IOHEXOL 300 MG/ML 75 ML VIAL. IV ONE (22:45)
[2020-10-20] MEDS ORDERED: CONTRAST GIVEN. MC PRN (23:00)
[2020-10-20 23:04] LABS: BASO # 0.1 x10^3/uL (0.0-0.2); BASO % 1 % (0-3); EOS # 0.3 x10^3/uL (0.0-0.7); EOS % 3 % (0-3); HEMOGLOBIN 13.8 g/dL (13.0-17.5); LYMPH # 4.1 x10^3/uL (1.0-4.8); LYMPH % 34 % (24-48); MEAN CORPUSCULAR HEMOGLOBIN 31 pg (25-35); MEAN CORPUSCULAR HGB CONC 34 g/dL (31-37); MEAN CORPUSCULAR VOLUME 91 fL (79-100); MONO # 1.2 x10^3/uL (0.0-1.1); MONO % 10 % (0-9); NEUT # 6.3 x10^3uL (1.8-7.7); NEUT % 52 % (31-73); PLATELET COUNT 299 x10^3/uL (140-400); RED CELL DISTRIBUTION WIDTH 13.5 % (11.5-14.5)
[2020-10-20 23:11] LABS: CALCIUM 8.8 mg/dL (8.5-10.1); GFR 83.6; POTASSIUM 3.8 mmol/L (3.5-5.1)
[2020-10-20] MEDS ORDERED: CLIN150C15 PO (23:18)
[2020-10-20 23:30] VITALS: BP 110/74
== END 2020-10-20 23:44 | disposition left against medical advice (07) ==
LOC: ER 21:43
DX: K08.89 Other specified disorders of teeth and supporting structures (principal); R22.1 Localized swelling, mass and lump, neck; F31.9 Bipolar disorder, unspecified; F17.210 Nicotine dependence, cigarettes, uncomplicated; Z88.8 Allergy status to other drugs, medicaments and biological substances
CPT/HCPCS: 36415; 80048; 85025; 99284

== ENCOUNTER 2020-10-21 13:27 | Emergency (ER) | payer MEDICAID ==
[~2020-10-21] VITALS: Ht 175.3 cm; Wt 97.3 kg
[~2020-10-21 13:27] MED LIST changes: +CLIN150C15 PO
[2020-10-21] MEDS ORDERED: IOHEXOL 300 MG/ML 75 ML VIAL. IV ONE (15:00)
--- NOTE | 2020-10-21 15:17 | PHYS DOC ---
Past History Past Medical History: Anxiety, Bipolar, Depression, Diabetes, Schizophrenia Past Surgical History: Other Additional Past Surgical Histo: ABD hernia Smoking: Cigarettes Alcohol Use: Occasionally Drug Use: Methamphetamine Social History Narrative: LAST USED A FEW HOURS AGO Adult General Chief Complaint Chief Complaint: SKIN PROBLEM HPI HPI Patient is a 40-year-old male presents to the emergency department with the chief complaint that he wants his CAT scan done of his face and neck today. Patient states he was here yesterday and seen and ED provider who evaluated the swelling of his right lower jaw and right side neck and recommended a CAT scan be done to further evaluate infectious process. Patient states that he refused this and went home with a prescription for clindamycin antibiotic for a tooth abscess. Patient states this originally started approximately 3 to 4 weeks ago where he broke a molar on the right lower side second tooth from the most rear, was seen here on September,, was started on antibiotics that he states seemed to resolve his swelling and tooth pain. Patient states he did not see a dentist. Patient states that the swelling started to come back over the past week and a half and he came in yesterday for reevaluation. Patient states the swelling is not as bad as it was yesterday and he feels that the infection seems to be getting better. Patient denies fever or chills, denies throat pain, denies trouble swallowing, denies trouble breathing, denies neck pain, denies chest pain, denies shortness of breath, denies nausea vomiting or abdominal pain. Patient states he smokes cigarettes, does not drink alcohol, smokes meth often. Denies any other illicit drug use. Review of Systems Review of Systems 14 body systems of review of systems have been reviewed. See HPI for pertinent positives and negative responses, otherwise all other systems are negative, nonpertinent or noncontributory. Current Medications Current Medications Current Medications Medications (Trade) Dose Ordered Sig/Xavi Start Time Stop Time Status Last Admin Dose Admin Iohexol (Omnipaque 300 Mg/ml) 75 ml 1X ONCE 10/21/20 15:00 10/21/20 15:01 DC Allergies Allergies Allergies Coded Allergies Type Severity Reaction Last Updated Verified haloperidol Allergy Intermediate 10/21/20 Yes paliperidone Allergy Intermediate 10/21/20 Yes Physical Exam Physical Exam Constitutional: Well developed, well nourished, no acute distress, non-toxic appearance. 40-year-old male in no apparent distress. HENT: Normocephalic, atraumatic, bilateral external ears normal, oropharynx moist, no oral exudates, nose normal. Oropharynx moist, pink, within normal limits, no deep tissue infectious process appreciated. No laryngeal edema or infectious process appreciated. Right-sided posterior cervical lymphadenopathy appreciated, right-sided submandibular swelling with induration without fluctuance, no central punctum appreciated. No erythema around induration appreciated. Marked dental caries, no purulence from broken tooth right lower second from most rear. Eyes: PERRLA, EOMI, conjunctiva normal, no discharge. Neck: Normal range of motion, no tenderness, supple, no stridor. Cardiovascular:Heart rate regular rhythm, no murmur Lungs & Thorax: Bilateral breath sounds clear to auscultation Abdomen: Bowel sounds normal, soft, no tenderness, no masses, no pulsatile masses. Skin: Warm, dry, no erythema, no rash. Back: No tenderness, no CVA tenderness. Extremities: No tenderness, no cyanosis, no clubbing, ROM intact, no edema. Neurologic: Alert and oriented X 3, normal motor function, normal sensory function, no focal deficits noted. Psychologic: Affect normal, judgement normal, mood normal. Current Patient Data Vital Signs Vital Signs Date Time Temp Pulse Resp B/P (MAP) Pulse Ox O2 Delivery O2 Flow Rate FiO2 10/21/20 13:27 97.9 95 18 110/64 (79) 96 Room Air EKG EKG [] Radiology/Procedures Radiology/Procedures [] Heart Score C/O Chest Pain: No Risk Factors: Risk Factors: DM, Current or recent (<one month) smoker, HTN, HLP, family history of CAD, obesity. Risk Scores: Risk Factors: DM, Current or recent (<one month) smoker, HTN, HLP, family history of CAD, obesity. Course & Med Decision Making Course & Med Decision Making Pertinent Labs and Imaging studies reviewed. (See chart for details) 40-year-old male, vital signs reviewed, presents emergency department wanting has CAT scan that was offered yesterday. Physical examination concerning for possible deep tissue infection on right side of neck stemming from broken tooth from months ago. Patient was amenable to have soft tissue neck CT and CT of maxillofacial with IV contrast to rule out deep tissue infection. ED nurse states patient is refusing to have IV placed, and wants to leave. Reexamination of patient, patient states that he does not want to have CT at this time, states that he feels the infection is getting better, wants to start his clindamycin as directed yesterday by the previous ED provider. Recommended patient stay for further evaluation, patient states that he would rather go home and try the antibiotics, states that if things do not get better or if he feels the infection is getting worse he will come immediately back to the emergency department. Patient has adamantly refused CT of soft tissue neck and maxillofacial. Patient gave verbal understanding of discharge home instructions, strict return to ER precautions and concerns, strict antibiotic regimen starting today. Discussed with patient smoking cessation, discussed with patient methamphetamine abuse and stopping illicit drug use. Call today or tomorrow for follow-up with primary care soon. Patient had no further questions or concerns and was discharged home. Dragon Disclaimer Dragon Disclaimer This electronic medical record was generated, in whole or in part, using a voice recognition dictation system. Departure Departure: Impression: Primary Impression: Dental abscess Additional Impressions: Pain, dental Methamphetamine abuse Cigarette smoker Disposition: 01 DC HOME SELF CARE/HOMELESS Condition: GOOD Referrals: ANTONY RODRIGUEZ MD (PCP) Patient Instructions: Dental Abscess, Dental Caries Additional Instructions: You were evaluated today for the dental abscess/infection on the right side lower molar. It was recommended a CT of your neck and face be performed to evaluate for deep tissue infection. You have refused this at this time, we have discussed the need for you to start your antibiotics immediately today. Please call your primary care physician today or tomorrow for a follow-up and reevaluation of the abscess. Please return immediately to the emergency department for further evaluation for worsening symptoms or other concerns. EMERGENCY DEPARTMENT GENERAL DISCHARGE INSTRUCTIONS Thank you for coming to [facility] ([facility]) today and trusting us with you care. We trust that you had a positivie experience in our Emergency Department. If you wish to speak to the department management, you may call the director at [phone]. YOUR FOLLOW UP INSTRUCTIONS ARE FOLLOWS: 1. Do you have a private Doctor? If you do not have a private doctor, please ask for a resource list of physicians or clinics that may be able to assist you with follow up care. 2. The Emergency Physician has interpreted your x-rays. The X-Ray specialist will also review them. If there is a change in the findings, you will be notified in 48 hours when at all possible. 3. A lab test or culture has been done, your results will be reviewed and you will be notified if you need a change in treatment. ADDITIONAL INSTRUCTIONS AND INFORMATION: 1. Your care today has been supervised by a physician who is specially trained in emergency care. Many problems require more than one evaluation for a complete diagnosis and treatment. We recommend that you schedule your follow up appointment as recommended to ensure complete treatment of you illness or injury. If you are unable to obtain follow up care and continue to have a problem, or if your condition worsens, we recommend that you return to the ED. 2. We are not able to safely determine your condition over the phone nor are we able to give sound medical advice over the phone. For these safety reasons, if you call for medical advice we will ask you to come to the ED for further evaluation. 3. If you have any questions regarding these discharge instructions please call the ED at [phone]. SAFETY INFORMATION: In the interest of safety, wellness, and injury prevention; we encourage you to wear your sealbelt, if you smoke; quite smoking, and we encourage family to use a protective helmet for bicycling and other sporting events that present an increased risk for head injury. IF YOUR SYMPTOMS WORSEN OR NEW SYMPTOMS DEVELOP, OR YOU HAVE CONCERNS ABOUT YOUR CONDITION; OR IF YOUR CONDITION WORSENS WHILE YOU ARE WAITING FOR YOUR FOLLOW UP APPOINTMENT; EITHER CONTACT YOUR PRIMARY CARE DOCTOR, THE PHYSICIAN WHOSE NAME AND NUMBER YOU WERE GIVEN, OR RETURN TO THE ED IMMEDIATELY. Problem Qualifiers NAVEEN DE LEON APRN Oct 21, 2020 15:17
[2020-10-21 15:20] VITALS: BP 115/78
== END 2020-10-21 15:27 | disposition home or self-care (01) ==
LOC: ER 13:27
DX: K04.7 Periapical abscess without sinus (principal); F15.10 Other stimulant abuse, uncomplicated; K08.89 Other specified disorders of teeth and supporting structures; F17.210 Nicotine dependence, cigarettes, uncomplicated; M54.2 Cervicalgia; F31.9 Bipolar disorder, unspecified; E11.9 Type 2 diabetes mellitus without complications; F20.9 Schizophrenia, unspecified; Z88.8 Allergy status to other drugs, medicaments and biological substances
CPT/HCPCS: 99281

== ENCOUNTER 2020-10-22 18:43 | Emergency (ER) | payer MEDICAID ==
[~2020-10-22] VITALS: Ht 175.3 cm; Wt 97.3 kg
[2020-10-22 18:54] VITALS: BP 117/78
--- NOTE | 2020-10-22 19:16 | PHYS DOC ---
Past History Past Medical History: Anxiety, Bipolar, Depression, Diabetes, Schizophrenia Past Surgical History: Other Additional Past Surgical Histo: ABD hernia Smoking: Cigarettes Alcohol Use: Occasionally Drug Use: Methamphetamine General Adult EDM: Chief Complaint: ABSCESS HPI: HPI: Patient is a 40-year-old male who presents with abscess to right cheek. Patient has been seen here in the emergency room the last 2 days with dental pain. Patient was placed on antibiotics and started them today. Has history of anxiety, bipolar, depression, diabetes. Review of Systems: Review of Systems: Constitutional: Denies fever or chills Eyes: Denies change in visual acuity HENT: Denies nasal congestion or sore throat Respiratory: Denies cough or shortness of breath Cardiovascular: Denies chest pain or edema GI: Denies abdominal pain, nausea, vomiting, bloody stools or diarrhea : Denies dysuria Musculoskeletal: Denies back pain or joint pain Integument: Abscess to right cheek Neurologic: Denies headache, focal weakness or sensory changes Endocrine: Denies polyuria or polydipsia Lymphatic: Denies swollen glands Psychiatric: Denies depression or anxiety Allergies: Allergies: Allergies Coded Allergies Type Severity Reaction Last Updated Verified haloperidol Allergy Intermediate 10/21/20 Yes paliperidone Allergy Intermediate 10/21/20 Yes Physical Exam: PE: Constitutional: Well developed, well nourished, no acute distress, non-toxic appearance. [] HENT: Normocephalic, atraumatic, bilateral external ears normal, oropharynx moist, no oral exudates, nose normal. [] Eyes: PERRLA, EOMI, conjunctiva normal, no discharge. [] Neck: Normal range of motion, no tenderness, supple, no stridor. [] Cardiovascular:Heart rate regular rhythm, no murmur [] Lungs & Thorax: Bilateral breath sounds clear to auscultation [] Abdomen: Bowel sounds normal, soft, no tenderness, no masses, no pulsatile masses. [] Skin: Warm, dry, raised abscess right cheek, tender Back: No tenderness, no CVA tenderness. [] Extremities: No tenderness, no cyanosis, no clubbing, ROM intact, no edema. [] Neurologic: Alert and oriented X 3, normal motor function, normal sensory function, no focal deficits noted. [] Psychologic: Affect normal, judgement normal, mood normal. [] Current Patient Data: Vital Signs: Vital Signs Date Time Temp Pulse Resp B/P (MAP) Pulse Ox O2 Delivery O2 Flow Rate FiO2 10/22/20 18:54 97.7 104 18 117/78 (91) 97 Room Air EKG: EKG: [] Radiology/Procedures: Radiology/Procedures: [] Heart Score: C/O Chest Pain: No Risk Factors: Risk Factors: DM, Current or recent (<one month) smoker, HTN, HLP, family history of CAD, obesity. Risk Scores: Score 0 - 3: 2.5% MACE over next 6 weeks - Discharge Home Score 4 - 6: 20.3% MACE over next 6 weeks - Admit for Clinical Observation Score 7 - 10: 72.7% MACE over next 6 weeks - Early Invasive Strategies Course & Med Decision Making: Course & Med Decision Making Pertinent Labs and Imaging studies reviewed. (See chart for details) [] Patient has abscess to right cheek. Patient is currently on antibiotics for dental pain he was reporting last few days in the emergency room. Abscess is ready for I&D. Lidocaine injected around abscess. Patient stopped me correction through and wanted me to stop because the pain was too bad. Patient asked if he could just leave AMA. Patient has left AMA the last three days. Patient refusing CT due to not wanting to be stuck with needle for an IV. Patient has antibiotic to take at home which he had filled yesterday. Instructed patient to come back if symptoms worsen. Patient is apologetic but states he cant do it because it hurts too much. Patient given AMA paperwork. Kym Disclaimer: Kym Disclaimer: This electronic medical record was generated, in whole or in part, using a voice recognition dictation system. Departure Departure: Impression: Primary Impression: Abscess Disposition: AMA/ELOPED/LWBS Condition: STABLE Referrals: ANTONY RODRIGUEZ MD (PCP) Patient Instructions: Abscess, Care After Additional Instructions: EMERGENCY DEPARTMENT GENERAL DISCHARGE INSTRUCTIONS Thank you for coming to [facility] ([facility]) today and trusting us with you care. We trust that you had a positivie experience in our Emergency Department. If you wish to speak to the department management, you may call the director at [phone]. YOUR FOLLOW UP INSTRUCTIONS ARE FOLLOWS: 1. Do you have a private Doctor? If you do not have a private doctor, please ask for a resource list of physicians or clinics that may be able to assist you with follow up care. 2. The Emergency Physician has interpreted your x-rays. The X-Ray specialist will also review them. If there is a change in the findings, you will be notified in 48 hours when at all possible. 3. A lab test or culture has been done, your results will be reviewed and you will be notified if you need a change in treatment. ADDITIONAL INSTRUCTIONS AND INFORMATION: 1. Your care today has been supervised by a physician who is specially trained in emergency care. Many problems require more than one evaluation for a complete diagnosis and treatment. We recommend that you schedule your follow up appointment as recommended to ensure complete treatment of you illness or injury. If you are unable to obtain follow up care and continue to have a problem, or if your condition worsens, we recommend that you return to the ED. 2. We are not able to safely determine your condition over the phone nor are we able to give sound medical advice over the phone. For these safety reasons, if you call for medical advice we will ask you to come to the ED for further evaluation. 3. If you have any questions regarding these discharge instructions please call the ED at [phone]. SAFETY INFORMATION: In the interest of safety, wellness, and injury prevention; we encourage you to wear your sealbelt, if you smoke; quite smoking, and we encourage family to use a p rotective helmet for bicycling and other sporting events that present an increased risk for head injury. IF YOUR SYMPTOMS WORSEN OR NEW SYMPTOMS DEVELOP, OR YOU HAVE CONCERNS ABOUT YOUR CONDITION; OR IF YOUR CONDITION WORSENS WHILE YOU ARE WAITING FOR YOUR FOLLOW UP APPOINTMENT; EITHER CONTACT YOUR PRIMARY CARE DOCTOR, THE PHYSICIAN WHOSE NAME AND NUMBER YOU WERE GIVEN, OR RETURN TO THE ED IMMEDIATELY. KAVEH BELTRÁN APRN Oct 22, 2020 19:16
[2020-10-22] MEDS ORDERED: LIDOCAINE 1%/EPI 1:100,000 10 ML VIAL. INJ ONE (19:30)
== END 2020-10-22 19:50 | disposition left against medical advice (07) ==
LOC: ER 18:43
DX: L02.01 Cutaneous abscess of face (principal); F41.9 Anxiety disorder, unspecified; F31.9 Bipolar disorder, unspecified; E11.9 Type 2 diabetes mellitus without complications; F20.9 Schizophrenia, unspecified; F17.210 Nicotine dependence, cigarettes, uncomplicated; Z88.8 Allergy status to other drugs, medicaments and biological substances
CPT/HCPCS: 96372; 99283

== ENCOUNTER 2021-02-24 14:07 | Emergency (ER) | payer MEDICAID ==
[~2021-02-24] VITALS: Ht 175.3 cm; Wt 97.3 kg
[~2021-02-24 14:07] MED LIST changes: -CLIN150C15 PO; +CLIN150C16 PO
[2021-02-24 14:13] VITALS: BP 117/78
[2021-02-24] MEDS ORDERED: IV RINGERS SOLUTION,LACTATED 1,000 ML IV ONE (14:15)
--- NOTE | 2021-02-24 14:27 | PHYS DOC ---
Past History Past Medical History: Anxiety, Bipolar, Depression, Diabetes, Schizophrenia Past Surgical History: Other Additional Past Surgical Histo: ABD hernia Smoking: Cigarettes Alcohol Use: Occasionally Drug Use: Methamphetamine General Adult EDM: Chief Complaint: SHORTNESS OF BREATH HPI: HPI: Patient is a 40-year-old male coming in for shortness of breath. Patient's history is limited as patient is a poor historian. Patient initially states that his shortness of breath been going on for 1 day, then 1 week, then for the last 2 to 3 days. Patient says he has had a cough productive of green phlegm. Patient states he is a baseline cough due to his diagnosis of COPD but states his cough now is more frequent and productive. Denies any GI complaints. Patient states he got his 2nd [place] vaccine for Covid 2 to 3 weeks ago. Denies any fevers or chills. Review of Systems: Review of Systems: All other systems within normal limits except for as noted in the HPI Current Medications: Current Meds: Current Medications Medications (Trade) Dose Ordered Sig/Xavi Start Time Stop Time Status Last Admin Dose Admin Lactated Ringer's 1,000 ml @ 1,000 mls/hr 1X ONCE 02/24/21 14:15 02/24/21 15:14 UNV Allergies: Allergies: Allergies Coded Allergies Type Severity Reaction Last Updated Verified haloperidol Allergy Intermediate 10/21/20 Yes paliperidone Allergy Intermediate 10/21/20 Yes Physical Exam: PE: Constitutional: Well developed, well nourished, no acute distress, non-toxic appearance. [] HENT: Normocephalic, atraumatic, bilateral external ears normal, nose normal. [] Eyes: PERRLA, conjunctiva normal, no discharge. [] Neck: No rigidity, supple, no stridor. [] Cardiovascular: Tachycardic rhythm, brisk cap refill [] Lungs & Thorax: Non labored symmetric respirations, no tachypnea or respiratory distress [] Abdomen: Soft, nondistended. Skin: Warm, dry, no erythema, no rash. [] Back: Unremarkable Extremities: No deformities, range of motion grossly intact, no lower extremity edema [] Neurologic: Alert and oriented X 3, no focal deficits noted. [] Psychologic: Affect normal, judgement normal, mood normal. [] Current Patient Data: Vital Signs: Vital Signs Date Time Temp Pulse Resp B/P (MAP) Pulse Ox O2 Delivery O2 Flow Rate FiO2 02/24/21 14:13 98.0 112 16 117/78 96 Room Air EKG: EKG: [] Radiology/Procedures: Radiology/Procedures: [] Heart Score: C/O Chest Pain: No Risk Factors: Risk Factors: DM, Current or recent (<one month) smoker, HTN, HLP, family history of CAD, obesity. Risk Scores: Score 0 - 3: 2.5% MACE over next 6 weeks - Discharge Home Score 4 - 6: 20.3% MACE over next 6 weeks - Admit for Clinical Observation Score 7 - 10: 72.7% MACE over next 6 weeks - Early Invasive Strategies Course & Med Decision Making: Course & Med Decision Making Patient also stated that he has not been taking his medication as prescribed. Initial work-up ordered but patient refused to give urine and labs, requested to leave AMA. Kym Disclaimer: Dragbethany Disclaimer: This electronic medical record was generated, in whole or in part, using a voice recognition dictation system. Departure Departure: Impression: Primary Impression: Dyspnea Additional Impression: Left against medical advice Disposition: LEFT AGAINST MEDICAL ADVICE Condition: STABLE Referrals: ANTONY RODRIGUEZ MD (PCP) JARED ESTRADA MD Feb 24, 2021 14:27
== END 2021-02-24 14:26 | disposition left against medical advice (07) ==
LOC: ER 14:07
DX: R06.02 Shortness of breath (principal); R05 Cough; F41.9 Anxiety disorder, unspecified; F31.9 Bipolar disorder, unspecified; E11.9 Type 2 diabetes mellitus without complications; F20.9 Schizophrenia, unspecified; F17.210 Nicotine dependence, cigarettes, uncomplicated; Z88.8 Allergy status to other drugs, medicaments and biological substances
CPT/HCPCS: 99281

== ENCOUNTER 2021-03-28 08:54 | Emergency (ER) | payer MEDICAID ==
[~2021-03-28] VITALS: Ht 175.3 cm; Wt 95.5 kg
[2021-03-28 09:11] VITALS: BP 135/92
--- NOTE | 2021-03-28 09:41 | PHYS DOC ---
Past History Past Medical History: Anxiety, Bipolar, Depression, Diabetes, Schizophrenia Past Surgical History: Other Additional Past Surgical Histo: ABD hernia Smoking: Cigarettes Alcohol Use: Occasionally Drug Use: Methamphetamine General Adult EDM: Chief Complaint: SUBSTANCE ABUSE HPI: HPI: 40-year-old male past medical history of diabetes, depression and schizoaffective disorder (takes Abilify, BuSpar, Cogentin and ariprazole), presents the ED with complaints of bugs over his arms and legs and in his facial hair. Reports he did IV methamphetamine yesterday in both arm. Is currently homeless, was kicked out of his father's place a few days ago. Is tearful on exam and states "I'm having a bad day." Review of Systems: Review of Systems: Constitutional: Denies fever or chills Eyes: Denies change in visual acuity HENT: Denies nasal congestion or sore throat Respiratory: Denies cough or shortness of breath Cardiovascular: Denies chest pain or edema GI: Denies nausea or vomiting, : Denies dysuria or hematuria Musculoskeletal: Denies back pain or joint pain Integument: Denies rash or diaphoresis (no interdigital webbing) Neurologic: Denies headache, focal weakness or sensory changes Endocrine: Denies polyuria or polydipsia Lymphatic: Denies swollen glands Psychiatric: Denies homicidal ideations or anxiety Allergies: Allergies: Allergies Coded Allergies Type Severity Reaction Last Updated Verified haloperidol Allergy Intermediate 10/21/20 Yes paliperidone Allergy Intermediate 10/21/20 Yes Physical Exam: PE: Constitutional: Well developed, well nourished, no acute distress, non-toxic appearance. HENT: Normocephalic, atraumatic, Eyes: EOMI, conjunctiva normal, no discharge. Neck: Normal range of motion, supple, Cardiovascular: S1/2 present, regular rhythm Lungs & Thorax: Speaking in full sentences, bilateral equal chest rise, no tachypnea or increased work of breathing Abdomen: soft, no tenderness, Skin: Warm, dry, multiple scabs over arms/legs, no interdigital lesions Back: No tenderness, no CVA tenderness. [] Extremities: No tenderness, no cyanosis, Neurologic: Alert and oriented X 3, normal motor function, normal sensory function, no focal deficits noted. [] Psychologic: calm mood, flat affect, no disorganized or bizarre thought processing Current Patient Data: Vital Signs: Vital Signs Date Time Temp Pulse Resp B/P (MAP) Pulse Ox O2 Delivery O2 Flow Rate FiO2 03/28/21 09:11 99 18 135/92 (106) 99 EKG: EKG: [] Radiology/Procedures: Radiology/Procedures: [] Heart Score: C/O Chest Pain: No Risk Factors: Risk Factors: DM, Current or recent (<one month) smoker, HTN, HLP, family history of CAD, obesity. Risk Scores: Score 0 - 3: 2.5% MACE over next 6 weeks - Discharge Home Score 4 - 6: 20.3% MACE over next 6 weeks - Admit for Clinical Observation Score 7 - 10: 72.7% MACE over next 6 weeks - Early Invasive Strategies Course & Med Decision Making: Course & Med Decision Making Pertinent Labs and Imaging studies reviewed. (See chart for details) Pt initially agreed to talk to social welfare research worker regarding his "bad day." Was very vague regarding this. On re-evaluation with myself and rn at bedside, pt denied feeling depressed, denied suicidal or homicidal ideations. Pt still agreed to talk to a social welfare research worker but then changed his mind when he was told we needed to draw blood and obtain urine for medical clearance. I have assessed patient's ability to make informed decision and feel the patient has the capacity to comprehend information regarding the current medical condition. Pt asked rn if he could leave the ed and eloped without any papers or followup information for substance abuse and schizoaffective disorder. Life-threatening processes were considered but are low suspicion at this time, given history, physical exam and ED workup. Life/limb-threatening differential includes but is not limited to, end organ damage/sepsis, trauma/abuse/neglect, neurologic deficit, alcohol/drug ingestion, toxidrome, suicidal/homicidal ideations plans or attempts, psychosis or mental illness resulting in self neglect and inability to care for self. Dragon Disclaimer: Dragon Disclaimer: This electronic medical record was generated, in whole or in part, using a voice recognition dictation system. Departure Departure: Impression: Primary Impression: Methamphetamine abuse Additional Impression: Eloped from emergency department Disposition: 07 LEFT AWOL/ELOPED Condition: STABLE Referrals: ANTONY RODRIGUEZ MD (PCP) KESHAV VANN DO Mar 28, 2021 09:41
== END 2021-03-28 09:57 | disposition left against medical advice (07) ==
LOC: ER 08:54
DX: F15.10 Other stimulant abuse, uncomplicated (principal); R23.4 Changes in skin texture; F41.9 Anxiety disorder, unspecified; F31.9 Bipolar disorder, unspecified; E11.9 Type 2 diabetes mellitus without complications; F20.9 Schizophrenia, unspecified; F17.210 Nicotine dependence, cigarettes, uncomplicated; Z88.8 Allergy status to other drugs, medicaments and biological substances
CPT/HCPCS: 99281

== ENCOUNTER → 2021-05-29 | Outpatient (CLI) | payer MEDICAID ==
--- NOTE | 2021-05-30 10:10 | RAD ---
Examination: 3 views of the cervical spine, 3 views of the thoracic spine HISTORY: History of neck pain, back pain COMPARISON: None available FINDINGS: The alignment of the cervical, thoracic vertebral bodies are maintained. Moderate intervert ebral disc height loss identified in the cervical, thoracic spine likely degenerative changes. The fa cets are well aligned. The lateral masses of C1 are aligned with C2 vertebra. The C2 dens appears int act. IMPRESSION: Moderate degenerative changes cervical and thoracic spine. Electronically signed by: Fred Gagnon MD (05/30/2021 10:07 AM) [id number]
== END ==
LOC: RAD 14:44
PROVIDERS: ATTEND Family Medicine
DX: M47.813 Spondylosis without myelopathy or radiculopathy, cervicothoracic region (principal); M54.2 Cervicalgia
CPT/HCPCS: 72040; 72072

== ENCOUNTER 2021-07-16 00:38 | Emergency (ER) | payer MEDICAID ==
[~2021-07-16] VITALS: Ht 177.8 cm; Wt 97.7 kg
[2021-07-16] MEDS ORDERED: AMOX1TAB61 PO (01:07)
--- NOTE | 2021-07-16 01:08 | PHYS DOC ---
Past History Past Medical History: Anxiety, Bipolar, Depression, Diabetes, Schizophrenia Past Surgical History: Other Additional Past Surgical Histo: ABD hernia Smoking: Cigarettes Alcohol Use: Occasionally Drug Use: Methamphetamine Adult General HPI HPI Patient is a 40-year-old male with a past medical history of anxiety, depression and COPD who presents with a chief complaint of increased mucus production, nasal congestion and wanted to be tested for Covid. Denies any recent traumas, travels, illnesses, fevers, chest pain, abdominal pain, nausea, vomiting, diarrhea. States he does have an appointment with his primary care physician in a couple days but wanted to be tested for Covid tonight and get some relief from his congestion. Review of Systems Review of Systems Review of systems otherwise unremarkable except noted in HPI Allergies Allergies Allergies Coded Allergies Type Severity Reaction Last Updated Verified haloperidol Allergy Intermediate 10/21/20 Yes paliperidone Allergy Intermediate 10/21/20 Yes Physical Exam Physical Exam Constitutional: Well developed, well nourished, no acute distress, non-toxic appearance. [] HENT: Normocephalic, atraumatic, oropharynx moist, Eyes: conjunctiva normal, no discharge. [] Neck: Normal range of motion, no tenderness, supple, no stridor. [] Cardiovascular: Sinus tachycardia Lungs & Thorax: Mild bilateral congestion with no increased work of breathing or tachypnea Abdomen: soft, no tenderness, no masses, no pulsatile masses. [] Skin: Warm, dry, no erythema, no rash. [] Neurologic: Alert and oriented X 3, normal motor function, normal sensory function, no focal deficits noted. [] Psychologic: Affect normal, judgement normal, mood normal. [] EKG EKG [] Radiology/Procedures Radiology/Procedures [] Heart Score C/O Chest Pain: No Risk Factors: Risk Factors: DM, Current or recent (<one month) smoker, HTN, HLP, family history of CAD, obesity. Risk Scores: Risk Factors: DM, Current or recent (<one month) smoker, HTN, HLP, family h istory of CAD, obesity. Course & Med Decision Making Course & Med Decision Making Patient is a 40-year-old male who presents with nasal congestion for couple of days and wanting to be tested for Covid Vital signs notable for sinus tachycardia. Physical exam noted above. Patient given steroids and breathing treatment and started on Augmentin for COPD exacerbation. Covid swab pending. Given symptom management recommendations for home. Advised to keep his upcoming PCP appointment. Gave return precautions to the ED. Patient grateful, verbalized understanding and agreed with plan of discharge. [] Amyon Disclaimer Kym Disclaimer This electronic medical record was generated, in whole or in part, using a voice recognition dictation system. Departure Departure: Impression: Primary Impression: Person under investigation for COVID-19 Additional Impression: COPD exacerbation Disposition: HOME / SELF CARE / HOMELESS Condition: GOOD Referrals: ANTONY RODRIGUEZ MD (PCP) Patient Instructions: Chronic Obstructive Pulmonary Disease, Viral Syndrome Additional Instructions: You have been tested for or diagnosed with COVID-19. It is an infection caused by a new type of coronavirus. COVID-19 will cause cold-like or mild flu symptoms in most. It can cause more severe symptoms like problems breathing in some. There is no treatment for COVID-19. The body will clear the infection over time. Self-care will help to ease discomfort. Steps to Take: Self-Care Rest as needed. Healthy habits may help you feel better. Steps include: Choose healthy foods including fruits and vegetables. Drink water throughout the day. Get plenty of sleep each night. If you smoke, try to quit. It may ease breathing. Avoid alcohol. Keep Others Healthy The virus can spread to others. Droplets are released every time you sneeze or cough. The droplets can get into the mouth, nose, or eyes of people near you and lead to infection. To lower the chances of spreading COVID-19 to others: Stay at home until your doctor has said it is safe to leave. If you tested positive this will mean staying isolated until both of the following are true: At least 7 days have passed since the start of illness. You are free of fever for at least 72 hours without the use of medicine. During this time: - Avoid public areas, events, or transportation. Do not return to work or school until your doctor has said it is safe to do so. - Call ahead if you need to go to a medical center. Let them know you may have COVID-19. It will help them guide you where to go. They may also ask you to wear a facemask when you come to the office. - If you call for emergency medical services, let them know you may have COVID- 19. While at home: - Try to avoid close contact with others. Stay about 6 feet away. - If possible, spend most of your time in a separate room from others. - Use a face mask if you will be in close contact with others such as sharing a room or vehicle. - Have someone wipe down common surfaces in the home. Use household dental appliance mechanic every day on areas like doorknobs, counters, or sinks. - Cough or sneeze into a tissue. Throw the tissue away right after use. If a tissue is not available, cough or sneeze into your elbow. - Wash your hands often. Wash them after sneezing or coughing. Use soap and ashvin er and wash for at least 20 seconds. Alcohol based hand metal cleaner can be used if soap and water is not available. - Do not prepare food for others. Avoid sharing personal items like forks, spoons, or toothbrushes. - Avoid close contact with pets while you are sick. There is no evidence of the virus passing to pets. This is a safety step until more is known about this virus. Isolation can be frustrating. Social interaction can help. Keep in touch with friends and family through phone and tech options. You can still interact with others in your home, just keep a safe distance of about 6 feet. Follow-up: Your doctors office will check in with you to see if there are any changes in your health. You may be asked to keep track of symptoms to share with them. They will also let you know when you are clear to be in public again. Problems to Look Out For: Contact your doctor if your recovery is not going as you expect. Get emergency care if you have problems such as: - Trouble breathing - Nonstop chest pain or pressure - Changes in awareness, confusion, or problems waking - Lips or face have bluish color - Worsening of symptoms If you think you have an emergency, call for emergency medical services right away. As taken from [email or web address] Amoxicillin/Potassium Clav (AUGMENTIN 875-125 TABLET) 1 Each Tablet 1 TAB PO BID for COPD for 10 Days, #19 TAB 0 Refills Prov: NÉSTOR BURGOS MD 07/16/21 Problem Qualifiers NÉSTOR BURGOS MD Jul 16, 2021 01:08
[2021-07-16] MEDS ORDERED: DEXAMETHASONE 4 MG TABLET PO ONE (01:30)
[2021-07-16] MEDS ORDERED: guaiFENesin/CODEINE 100mg/10mg 5 ML LIQUID PO ONE (01:30)
[2021-07-16] MEDS ORDERED: ALBUTEROL SULFATE 8GM INHALER. INH ONE (01:30)
[2021-07-16] MEDS ORDERED: AMOXICILLIN/K CLAV 875/125MG TABLET. PO ONE (01:30)
[2021-07-16 01:40] VITALS: BP 118/68
== END 2021-07-16 01:46 | disposition home or self-care (01) ==
LOC: ER 00:38
DX: J44.1 Chronic obstructive pulmonary disease with (acute) exacerbation (principal); F41.9 Anxiety disorder, unspecified; F31.9 Bipolar disorder, unspecified; E11.9 Type 2 diabetes mellitus without complications; F20.9 Schizophrenia, unspecified; F17.210 Nicotine dependence, cigarettes, uncomplicated; Z20.822 Contact with and (suspected) exposure to COVID-19; Z88.8 Allergy status to other drugs, medicaments and biological substances
CPT/HCPCS: 94640; 99284; C9803; J8540; U0003; 94664

== ENCOUNTER 2021-08-29 15:18 | Emergency (ER) | payer MEDICAID ==
[~2021-08-29] VITALS: Ht 177.8 cm; Wt 97.7 kg
[~2021-08-29 15:18] MED LIST changes: +AMOX1TAB61 PO
[2021-08-29 15:28] VITALS: BP 118/71
--- NOTE | 2021-08-29 15:41 | PHYS DOC ---
Past History Past Medical History: Anxiety, Bipolar, Depression, Diabetes, Schizophrenia Additional Past Medical Histor: drug abuse (JOHN GOMEZ APRN) Past Surgical History: Other Additional Past Surgical Histo: ABD hernia (JOHN GOMEZ APRN) Smoking: Cigarettes Alcohol Use: Occasionally Drug Use: Methamphetamine (JOHN GOMEZ APRN) General Adult EDM: Chief Complaint: HYPOGLYCEMIA HPI: HPI: Patient is a 40-year-old male that presents today because he thinks his blood sugar is low. Patient states that he went to work early this morning and that was the last time he ate, he said just prior to arrival he started feeling weird and he came to the emergency department because he has no way of checking his blood sugar. Patient states he does take medications for his diabetes, and he states he has not been eating regular meals and has been drinking and eating junk food over the last couple of days and feels that is affecting his blood sugar. (JOHN GOMEZ APRN) Review of Systems: Review of Systems: Constitutional: Denies fever or chills Eyes: Denies change in visual acuity HENT: Denies nasal congestion or sore throat Respiratory: Denies cough or shortness of breath Cardiovascular: Denies chest pain or edema GI: Denies abdominal pain, nausea, vomiting, bloody stools or diarrhea : Denies dysuria Musculoskeletal: Denies back pain or joint pain Integument: Denies rash Neurologic: Denies headache, focal weakness or sensory changes Endocrine: Hypoglycemia denies polyuria or polydipsia Lymphatic: Denies swollen glands Psychiatric: Denies depression or anxiety (JOHN GOMEZ APRN) Allergies: Allergies: Allergies Coded Allergies Type Severity Reaction Last Updated Verified haloperidol Allergy Intermediate 10/21/20 Yes paliperidone Allergy Intermediate 10/21/20 Yes (JOHN GOMEZ APRN) Physical Exam: PE: Constitutional: Well developed, well nourished, no acute distress, non-toxic appearance. [] HENT: Normocephalic, atraumatic, bilateral external ears normal, oropharynx moist, no oral exudates, nose normal. [] Eyes: PERRLA, EOMI, conjunctiva normal, no discharge. [] Neck: Normal range of motion, no tenderness, supple, no stridor. [] Cardiovascular:Heart rate regular rhythm, no murmur [] Lungs & Thorax: Bilateral breath sounds clear to auscultation [] Abdomen: Bowel sounds normal, soft, no tenderness, no masses, no pulsatile masses. [] Skin: Warm, dry, no erythema, no rash. [] Back: No tenderness, no CVA tenderness. [] Extremities: No tenderness, no cyanosis, no clubbing, ROM intact, no edema. [] Neurologic: Alert and oriented X 3, normal motor function, normal sensory function, no focal deficits noted. [] Psychologic: Affect flat, judgement normal, mood anxious. [] (JOHN GOMEZ APRN) Current Patient Data: Labs: Laboratory Tests Test 08/29/21 15:23 Glucose (Fingerstick) 115 mg/dL (70-99) H Vital Signs: Vital Signs Date Time Temp Pulse Resp B/P (MAP) Pulse Ox O2 Delivery O2 Flow Rate FiO2 08/29/21 15:28 97.1 98 16 118/71 (87) 98 Room Air (JOHN GOMEZ APRN) EKG: EKG: [] (JOHN GOMEZ APRN) Radiology/Procedures: Radiology/Procedures: [] (JOHN GOMEZ APRN) Heart Score: C/O Chest Pain: N/A Risk Factors: Risk Factors: DM, Current or recent (<one month) smoker, HTN, HLP, family history of CAD, obesity. Risk Scores: Score 0 - 3: 2.5% MACE over next 6 weeks - Discharge Home Score 4 - 6: 20.3% MACE over next 6 weeks - Admit for Clinical Observation Score 7 - 10: 72.7% MACE over next 6 weeks - Early Invasive Strategies (JOHN GOMEZ APRN) Course & Med Decision Making: Course & Med Decision Making Pertinent Labs and Imaging studies reviewed. (See chart for details) Patient is 40 years old and in no acute distress at this time. Blood sugars currently 115. Patient was informed that his blood sugar was within normal limits, he will need to follow-up with his primary care physician or one of the clinics provided in the brochure to get a glucometer so he can check his blood sugar on a regular basis. Patient is also encouraged to eat regular meals throughout the day and to decrease the amount of junk food and soda that he eats and drinks. Patient verbalizes understanding of this agreeable to the plan of care. (JOHN GOMEZ APRN) Course & Med Decision Making I was the Attending physician on the above date of service of this patient. This patient was evaluated, examined, treated, and dispositioned from the emergency department by the mid-level practitioner. Although I was working at the time , no assistance was requested. Electronically signed, Bhargav Hawkins DO (BHARGAV HAWKINS DO) Kym Disclaimer: Kym Disclaimer: This electronic medical record was generated, in whole or in part, using a voice recognition dictation system. (JOHN GOMEZ APRN) Departure Departure: Impression: Primary Impression: Normal exam Disposition: HOME / SELF CARE / HOMELESS Condition: STABLE Referrals: ANTONY RODRIGUEZ MD (PCP) Patient Instructions: 2400 Calorie Diet for Diabetes Meal Planning Additional Instructions: Take your medications as prescribed Eat regular meals throughout the day I have included a 2400-calorie diet for m eal planning to help you decide what the meals to prepare Reduce the amount of junk food and soda that you eat. JOHN GOMEZ APRN Aug 29, 2021 15:41 BHARGAV HAWKINS DO Sep 03, 2021 06:39
== END 2021-08-29 15:49 | disposition home or self-care (01) ==
LOC: ER 15:18
DX: Z00.00 Encounter for general adult medical examination without abnormal findings (principal); E11.649 Type 2 diabetes mellitus with hypoglycemia without coma; F31.9 Bipolar disorder, unspecified; F41.9 Anxiety disorder, unspecified; F20.9 Schizophrenia, unspecified; F17.210 Nicotine dependence, cigarettes, uncomplicated; Z88.8 Allergy status to other drugs, medicaments and biological substances
CPT/HCPCS: 82947; 99281; 99283